=== PATIENT | male | born 1995 | race Caucasian/White ===

== ENCOUNTER 2018-05-05 09:45 | Emergency (ER) | payer OTHER ==
[~2018-05-05] VITALS: Ht 177.8 cm; Wt 101.0 kg
[~2018-05-05 09:45] MED LIST: DICY1TAB26 PO; PHEN12.5 PO; PREV30CA36 PO
[2018-05-05 09:50] VITALS: BP 142/96; PULSE 85; RESP 16; TEMP 99.1; O2SAT 98
[2018-05-05] MEDS ORDERED: TETANUS/DIPHTHERIA TOXOID ADULT 0.5 ML VIAL IM ONE (10:15)
--- NOTE | 2018-05-05 10:50 | RADRPT ---
EXAM DATE: 05/05/2018 10:39 AM EDT AGE/SEX: 22 years / Male INDICATIONS: Right plantar foot pain at the base of the 2nd metatarsal after stepping on nail last n ight. CLINICAL DATA: This is the patient's initial encounter. Patient reports that signs and symptoms have been present for 1 day and indicates a pain score of 5/10. MEDICAL/SURGICAL HISTORY: None. None. COMPARISON: No prior exams available for comparison. FINDINGS: Bony structures are intact and in normal alignment. Osseous density is normal. Soft tissues are unre markable. No radiopaque foreign bodies seen. CONCLUSION: Negative examination Electronically signed by: Ryan Howell MD 05/05/2018 10:48 AM EDT
[2018-05-05] MEDS ORDERED: CLIN300C5 PO (11:03)
[2018-05-05] MEDS ORDERED: CIPR-9 PO (11:03)
--- NOTE | 2018-05-05 11:04 | PD ---
HPI Chief Complaint: Injury Time Seen by Provider: 10:01 Travel History International Travel<30 days: No Contact w/Intl Traveler<30days: No Traveled to known affect area: No History of Present Illness HPI This is a 22-year-old male here with a puncture wound to the right foot. Injury occurred yesterday. He reports he was wearing flip-flops when he was dismantling a fence and stepped on a nail. The nail went through a rubber soled shoe piercing the plantar aspect near the second metatarsal head. He reports he pulled the nail out of the shoe and foot. The nail was completely intact. The area bled immediately. Today he noticed the area became tender and mildly swollen. He presents requesting a tetanus shot. He denies fever chills. He is ambulatory. Symptom severity is moderate. Aggravated by weightbearing and progressing near the puncture. PFSH Past Medical History Medical History: Denies Significant Hx Diminished Hearing: No Musculoskeletal: Yes (MULTIPLE ORTHO,SPORTS RELATED INJ) Immunizations Current: Yes Influenza Vaccination: No Past Surgical History Surgical History: No Previous Surgery Social History Alcohol Use: Yes (couple times per week) Tobacco Use: No Substance Use: No Allergies-Medications (Allergen,Severity, Reaction): Coded Allergies: Sulfa (Sulfonamide Antibiotics) (Unverified Allergy, Severe, HIVES, ) Reported Meds & Prescriptions Reported Meds & Active Scripts Active No Active Prescriptions or Reported Medications Review of Systems Except as stated in HPI: all other systems reviewed are Neg General / Constitutional: No: Fever Physical Exam Narrative GENERAL: Alert and well-appearing 22-year-old male SKIN: Warm and dry. Puncture wound noted to the plantar aspect of the right foot. No surrounding erythema. No drainage from site. There is mild erythema on the opposing side at the base of the second toe. HEAD: Normocephalic. EYES:No injection or drainage. NECK: Supple CARDIOVASCULAR: Regular rate and rhythm RESPIRATORY: Breath sounds equal bilaterally. No accessory muscle use. GASTROINTESTINAL: Abdomen soft, non-tender, nondistended. MUSCULOSKELETAL: No cyanosis, or edema. See skin note above. Palpable DP pulse. No swelling of the foot. Can freely wiggle the toes. Data Data Last Documented VS Vital Signs Date Time Temp Pulse Resp B/P (MAP) Pulse Ox O2 Delivery O2 Flow Rate FiO2 05/05/18 09:50 99.1 85 16 142/96 (111) 98 Orders Orders Foot, Limited (2vws) (05/05/18 ) Tetanus/Diphtheria Tox Adult (Tetanus/Di (05/05/18 10:15) MDM Medical Decision Making Medical Screen Exam Complete: Yes Emergency Medical Condition: Yes Differential Diagnosis Puncture wound, cellulitis, retained foreign body Narrative Course 22-year-old male with a puncture wound to the right foot. He has mild erythema noted to the base of the second toe on the opposing side of the puncture wound. He is afebrile. Nontoxic-appearing. X-rays negative for foreign body. He will be started on clindamycin for cellulitis, will add Cipro as well to cover for Pseudomonas given the puncture wound was through a rubber soled shoe. Patient was instructed to have close follow-up in 2 days for recheck. Crutches for weightbearing. Return prior should he develop new or worsening symptoms. Diagnosis Primary Impression: Cellulitis Qualified Codes: L03.90 - Cellulitis, unspecified Referrals: Primary Care Physician Departure Forms: Tests/Procedures, Work Release Enter return to work date: May 07, 2018 Additional Instructions: Antibiotics as directed. Follow-up in 2 days for recheck. Return prior if he develop fever, severe increasing pain, increasing erythema of the area Scripts Ciprofloxacin (Cipro) 500 Mg Tab 500 MG PO BID for Infection for 10 Days, #20 TAB 0 Refills Prov: Daphne Lassiter 05/05/18 Clindamycin (Clindamycin) 300 Mg Cap 300 MG PO TID for Infection for 10 Days, CAP 0 Refills Prov: Daphne Lassiter 05/05/18 Disposition: 01 DISCHARGE HOME Condition: Stable Daphne Lassiter May 05, 2018 11:04
== END 2018-05-05 11:19 | disposition home or self-care (01) ==
LOC: PHEFT 09:45
DX: L03.115 Cellulitis of right lower limb (principal); S91.331A Puncture wound without foreign body, right foot, initial encounter; W45.0XXA Nail entering through skin, initial encounter; Z23 Encounter for immunization
CPT/HCPCS: 73620; 90471; 90714; 99283; E0113